=== PATIENT | male | born 1935 | race Two or more races ===

== ENCOUNTER 2022-03-19 18:45 | Inpatient (IN) | payer MEDICARE, OTHER ==
[~2022-03-19] VITALS: Ht 162.6 cm; Wt 91.7 kg
[2022-03-19] MEDS ORDERED: SODIUM CHLORIDE 0.9% 1,000 ML IV ONE (19:00)
[2022-03-19 20:10] LABS: Basophils # (auto) 0.1 10 ^3/uL (0-0.2); Basophils % (auto) 1.3 % (0.0-2.0); Eosinophils # (auto) 0.1 10 ^3/uL (0-0.8); Eosinophils % (auto) 1.9 % (0.0-7.0); Hematocrit 39.6 % (41.0-53.0); Hemoglobin 13.2 g/dL (13.5-17.5); Lymphocytes # (auto) 1.3 10 ^3/uL (0.4-5.4); Lymphocytes % (auto) 19.7 % (10.0-50.0); Mean Corpuscular Hemoglobin 29.9 pg (28.0-32.0); Mean Corpuscular Hgb Conc. 33.3 g/dL (32.0-36.0); Mean Corpuscular Volume 89.6 fL (80.0-100.0); Monocytes # (auto) 0.4 10 ^3/uL (0-1.3); Monocytes % (auto) 5.9 % (0.0-12.0); Neutrophils # (auto) 4.8 10 ^3/uL (1.6-8.6); Neutrophils % (auto) 71.2 % (37.0-80.0); Red Blood Cells 4.41 10^6/uL (4.5-5.90); Red Cell Distribution Width 15.2 % (11.8-14.3); White Blood Cell 6.8 10^3/uL (4.4-10.8)
[2022-03-19 20:25] LABS: Calcium 8.6 mg/dL (8.5-10.1); Potassium 3.8 mmol/L (3.5-5.1)
[2022-03-19 20:29] LABS: Albumin 3.1 g/dL (3.4-5.0); BUN/Creatinine Ratio 14.8
[2022-03-19 20:32] LABS: Bilirubin, Total 0.6 mg/dL (0.2-1.0); Total Protein 6.9 g/dL (6.4-8.2)
[2022-03-19 20:43] LABS: INR 1.05 (0.9-1.15); Partial Thromboplastin Time 29.1 sec (24.6-33.4)
[2022-03-19] MEDS ORDERED: ONDANSETRON HCL 4 MG/2 ML VIAL IV PRN (21:15)
[2022-03-19] MEDS ORDERED: DOCUSATE SOD 100 MG CAP PO PRN (21:15)
[2022-03-19] MEDS ORDERED: ACETAMINOPHEN 325 MG TAB PO PRN (21:15)
[2022-03-19] MEDS ORDERED: MORPHINE SULFATE INJ 2 MG/ml SYRG IV PRN (21:30)
[2022-03-19] MEDS ORDERED: NITROGLYCERIN 0.4 MG SL TAB SL PRN (21:30)
[2022-03-19] MEDS ORDERED: ASPirin 325 MG TAB PO ONE (21:45)
[2022-03-19] MEDS ORDERED: PANTOPRAZOLE 40 MG/10 ML VIAL INJ IV ONE (21:45)
[2022-03-19] MEDS ORDERED: DEXTROSE (50%) 50ML SYRG IV PRN (21:45)
[2022-03-19 22:33] LABS: Urine Bacteria NONE SEEN /hpf (None Seen); Urine Blood Negative /uL (Negative); Urine Hyaline Cast FEW /lpf (0 - 2); Urine Specific Gravity 1.019 (1.001-1.035); Urine WBC <1 /hpf (0 - 3)
[2022-03-19 22:41] LABS: Cholesterol 157 mg/dL (< 200)
[2022-03-19 22:43] LABS: HDL Cholesterol 46 mg/dL (40-59); LDL Cholesterol 97 mg/dL (< 100); Triglycerides 169 mg/dL (< 150)
[2022-03-19] MEDS: ACCU-CHEK COMFORT CURVE STRIP VI SCH (23:16)
[2022-03-19] MEDS: InsuLIN REG 1unit/0.01ml Soln (100units/ml) SC SCH (23:17)
[2022-03-19] MEDS: SODIUM CHLORIDE 0.9% 1,000 ML IV SCH (23:32)
[2022-03-20] MEDS ORDERED: hydrALAZINE HCL 20 MG/ML VL IV ONE (04:15)
[2022-03-20] MEDS: ACCU-CHEK COMFORT CURVE STRIP VI SCH ×4 (06:47→21:41)
[2022-03-20] MEDS: InsuLIN REG 1unit/0.01ml Soln (100units/ml) SC SCH ×4 (06:47→21:43)
[2022-03-20 07:00] LABS: Basophils # (auto) 0 10 ^3/uL (0-0.2); Basophils % (auto) 0.4 % (0.0-2.0); Eosinophils # (auto) 0.2 10 ^3/uL (0-0.8); Eosinophils % (auto) 2.4 % (0.0-7.0); Hematocrit 38.3 % (41.0-53.0); Hemoglobin 13.2 g/dL (13.5-17.5); Lymphocytes # (auto) 2.2 10 ^3/uL (0.4-5.4); Lymphocytes % (auto) 28.7 % (10.0-50.0); Mean Corpuscular Hemoglobin 30.8 pg (28.0-32.0); Mean Corpuscular Hgb Conc. 34.4 g/dL (32.0-36.0); Mean Corpuscular Volume 89.6 fL (80.0-100.0); Monocytes # (auto) 0.6 10 ^3/uL (0-1.3); Monocytes % (auto) 7.4 % (0.0-12.0); Neutrophils # (auto) 4.7 10 ^3/uL (1.6-8.6); Neutrophils % (auto) 61.1 % (37.0-80.0); Red Blood Cells 4.27 10^6/uL (4.5-5.90); Red Cell Distribution Width 14.8 % (11.8-14.3); White Blood Cell 7.7 10^3/uL (4.4-10.8)
[2022-03-20 07:01] LABS: Potassium 3.1 mmol/L (3.5-5.1)
[2022-03-20 07:07] LABS: Albumin 3.1 g/dL (3.4-5.0); BUN/Creatinine Ratio 19.8; Bilirubin, Total 1.1 mg/dL (0.2-1.0); Calcium 8.5 mg/dL (8.5-10.1); Total Protein 6.8 g/dL (6.4-8.2)
[2022-03-20] MEDS ORDERED: POTASSIUM EFFERVESENT TAB 25 MEQ PO ONE (07:30)
[2022-03-20] MEDS: ASPirin 81 mg TAB PO SCH (07:56)
[2022-03-20] MEDS: SODIUM CHLORIDE 0.9% 1,000 ML IV SCH ×2 (07:56→17:15)
[2022-03-20] MEDS: ENOXAPARIN SOD 40 MG/0.4 ML SYRINGE SC SCH (07:56)
[2022-03-20] MEDS ORDERED: PANTOPRAZOLE 40 MG/10 ML VIAL INJ IV SCH (10:00)
[2022-03-20 12:45] VITALS: BP 139/68
[2022-03-20] MEDS ORDERED: METF-372 PO (13:48)
[2022-03-20] MEDS ORDERED: MEMA1TAB5 PO (13:48)
[2022-03-20] MEDS ORDERED: CYAN1TAB11 PO (13:48)
[2022-03-20] MEDS ORDERED: TAMS0.4C36 PO (15:45)
[2022-03-20] MEDS ORDERED: MEMA1TAB3 PO (15:45)
[2022-03-20] MEDS ORDERED: INSUINJ37 SC (15:45)
[2022-03-20] MEDS ORDERED: LOSA-69 PO (15:45)
[2022-03-20 20:00] VITALS: BP 133/76
[2022-03-20] MEDS ORDERED: LORazepam 2MG/ML-1ML VIAL IV PRN (20:30)
[2022-03-20 22:00] VITALS: BP 133/76
[2022-03-20 22:21] LABS: Folate (Folic Acid) 15.04 ng/mL (5.38-24)
[2022-03-21] VITALS (8 sets, daily range): BP systolic 133–172; BP diastolic 62–80
[2022-03-21] MEDS: SODIUM CHLORIDE 0.9% 1,000 ML IV SCH ×3 (03:15→23:15)
[2022-03-21] MEDS: InsuLIN REG 1unit/0.01ml Soln (100units/ml) SC SCH ×4 (06:22→22:42)
[2022-03-21] MEDS: ACCU-CHEK COMFORT CURVE STRIP VI SCH ×4 (06:22→22:42)
[2022-03-21] MEDS: ASPirin 81 mg TAB PO SCH (09:53)
[2022-03-21] MEDS: ENOXAPARIN SOD 40 MG/0.4 ML SYRINGE SC SCH (09:54)
[2022-03-21 11:58] LABS: Calcium 8.1 mg/dL (8.5-10.1); Potassium 3.7 mmol/L (3.5-5.1)
[2022-03-21] MEDS ORDERED: LOSARTAN POTASSIUM 50 MG TAB PO ONE (14:45)
[2022-03-21] MEDS ORDERED: hydrALAZINE HCL 20 MG/ML VL IV ONE (23:00)
[2022-03-22 00:50] VITALS: BP 126/76
[2022-03-22 05:00] VITALS: BP 148/62
[2022-03-22] MEDS: ACCU-CHEK COMFORT CURVE STRIP VI SCH ×2 (06:22→11:50)
[2022-03-22] MEDS: InsuLIN REG 1unit/0.01ml Soln (100units/ml) SC SCH ×2 (06:23→11:54)
[2022-03-22 08:00] VITALS: BP 150/62
[2022-03-22 09:04] VITALS: BP 130/79
[2022-03-22] MEDS: ASPirin 81 mg TAB PO SCH (09:35)
[2022-03-22] MEDS: ENOXAPARIN SOD 40 MG/0.4 ML SYRINGE SC SCH (09:36)
[2022-03-22] MEDS ORDERED: LOSARTAN POTASSIUM 50 MG TAB PO SCH (10:00)
[2022-03-22 13:00] VITALS: BP 115/64
[2022-03-22 14:24] VITALS: BP 115/64
== END 2022-03-22 16:25 | disposition home or self-care (01) | DRG 71 ==
LOC: EDBD 18:45 → ER 18:50 → TELE 21:44 → TELE-CENTR 03-20 09:40
PROVIDERS: ADMIT Nurse Practitioner Family; ATTEND Nurse Practitioner Acute Care
DX: G93.41 Metabolic encephalopathy (principal); E46 Unspecified protein-calorie malnutrition; F03.B18 Unspecified dementia, moderate, with other behavioral disturbance; G45.9 Transient cerebral ischemic attack, unspecified; E86.0 Dehydration; E87.6 Hypokalemia; G47.10 Hypersomnia, unspecified; I10 Essential (primary) hypertension; E11.9 Type 2 diabetes mellitus without complications; D64.9 Anemia, unspecified; Z20.822 Contact with and (suspected) exposure to COVID-19; E66.01 Morbid (severe) obesity due to excess calories; Z82.3 Family history of stroke; Z68.34 Body mass index [BMI] 34.0-34.9, adult
CPT/HCPCS: 36415; 70450; 70551; 71045; 80048; 80053; 80061; 81001; 82607; 82746; 82962; 83036; 83880; 84443; 84484; 85025; 85610; 85730; 87426; 93005; 93306; 93886; 95819; 96361; 96372; 96374; 96375; 96376; C9113; G0378; J1815

== ENCOUNTER 2023-06-11 05:20 | Inpatient (IN) | payer MEDICARE ==
[~2023-06-11] VITALS: Ht 172.7 cm; Wt 90.4 kg
[~2023-06-11 05:20] MED LIST: CYAN1TAB11 PO; INSUINJ37 SC; LOSA50TA46 PO; MEMA1TAB3 PO; MEMA1TAB5 PO; METF-372 PO; TAMS0.4C36 PO
[2023-06-11] MEDS ORDERED: ONDANSETRON HCL 4 MG/2 ML VIAL IM ONE (06:30)
[2023-06-11] MEDS ORDERED: HYDROmorphone HCL 2 MG/ML VL/or syr IM ONE (06:30)
[2023-06-11 08:35] LABS: Basophils # (auto) 0 10 ^3/uL (0-0.2); Basophils % (auto) 0.6 % (0.0-2.0); Eosinophils # (auto) 0.2 10 ^3/uL (0-0.8); Lymphocytes # (auto) 1.8 10 ^3/uL (0.4-5.4); Lymphocytes % (auto) 21.8 % (10.0-50.0); Mean Corpuscular Hemoglobin 30.1 pg (28.0-32.0); Mean Corpuscular Hgb Conc. 33.3 g/dL (32.0-36.0); Mean Corpuscular Volume 90.4 fL (80.0-100.0); Monocytes # (auto) 0.6 10 ^3/uL (0-1.3); Monocytes % (auto) 6.9 % (0.0-12.0); Neutrophils # (auto) 5.8 10 ^3/uL (1.6-8.6); Neutrophils % (auto) 68.7 % (37.0-80.0); Nucleated Red Blood Cells % 0.1 %; Red Blood Cells 4.31 10^6/uL (4.5-5.90); Red Cell Distribution Width 14.3 % (11.8-14.3); White Blood Cell 8.4 10^3/uL (4.4-10.8)
[2023-06-11 08:45] LABS: Chloride 111 mmol/L (98-107); Potassium 3.8 mmol/L (3.5-5.1); Sodium 143 mmol/L (136-145)
[2023-06-11 08:46] LABS: Anion Gap 6 (5-15); Carbon Dioxide 26 mmol/L (20-30)
[2023-06-11 08:47] LABS: Calcium 9.2 mg/dL (8.5-10.1)
[2023-06-11 08:51] LABS: BUN/Creatinine Ratio 18.1 (10.0-20.0); Blood Urea Nitrogen 25 mg/dL (9-23); Glucose 102 mg/dL (74-106)
[2023-06-11] MEDS ORDERED: DOCUSATE SOD 100 MG CAP PO PRN (09:45)
[2023-06-11] MEDS ORDERED: DEXTROSE (50%) 50ML SYRG IV PRN (09:45)
[2023-06-11] MEDS ORDERED: ONDANSETRON HCL 4 MG/2 ML VIAL IV PRN (09:45)
[2023-06-11] MEDS ORDERED: HALOPERIDOL LACTATE 5 MG/ML INJ VIAL IM PRN (09:45)
[2023-06-11] MEDS: levETIRAcetam 500 MG TAB PO SCH ×2 (10:00→23:55)
[2023-06-11] MEDS: LOSARTAN POTASSIUM 50 MG TAB PO SCH (10:00)
[2023-06-11] MEDS: TAMSULOSIN HYDROCHLORIDE 0.4 MG CAP PO SCH (10:00)
[2023-06-11] MEDS: MEMANTINE HCL 5 MG TAB PO SCH ×2 (10:00→23:54)
[2023-06-11] MEDS: SODIUM CHLORIDE 0.9% 1,000 ML IV SCH ×2 (10:36→19:45)
[2023-06-11] MEDS: ACCU-CHEK COMFORT CURVE STRIP VI SCH ×2 (12:00→16:59)
[2023-06-11] MEDS: InsuLIN REG 1unit/0.01ml Soln (100units/ml) SC SCH ×2 (12:00→17:00)
[2023-06-11 20:10] VITALS: RESP 20; O2SAT 97
[2023-06-11 20:47] LABS: Urine Epithelial Cast None Seen /hpf (<5)
[2023-06-11 20:59] LABS: Urine Bacteria NONE SEEN /hpf (None Seen); Urine Blood Negative /uL (Negative); Urine Clarity Clear (Clear); Urine Color Yellow (Yellow); Urine Hyaline Cast FEW /lpf (0 - 2); Urine Protein, UAD Negative (Negative); Urine Specific Gravity 1.019 (1.001-1.035); Urine Urobilinogen Normal (Negative); Urine WBC 2 /hpf (0 - 3)
[2023-06-11 21:13] LABS: Creatinine, Urine 110.73 mg/dL (30.0-125.0)
[2023-06-12] MEDS: ACCU-CHEK COMFORT CURVE STRIP VI SCH ×4 (01:00→18:00)
[2023-06-12] MEDS: InsuLIN REG 1unit/0.01ml Soln (100units/ml) SC SCH ×4 (01:00→18:00)
[2023-06-12] MEDS: SODIUM CHLORIDE 0.9% 1,000 ML IV SCH ×2 (06:15→15:45)
[2023-06-12 06:48] LABS: Basophils # (auto) 0 10 ^3/uL (0-0.2); Basophils % (auto) 0.2 % (0.0-2.0); Eosinophils # (auto) 0 10 ^3/uL (0-0.8); Eosinophils % (auto) 0.1 % (0.0-7.0); Hematocrit 39.9 % (41.0-53.0); Lymphocytes # (auto) 1.3 10 ^3/uL (0.4-5.4); Lymphocytes % (auto) 10.5 % (10.0-50.0); Mean Corpuscular Hemoglobin 29.9 pg (28.0-32.0); Mean Corpuscular Hgb Conc. 32.7 g/dL (32.0-36.0); Mean Corpuscular Volume 91.5 fL (80.0-100.0); Monocytes # (auto) 0.8 10 ^3/uL (0-1.3); Monocytes % (auto) 6.3 % (0.0-12.0); Neutrophils # (auto) 10.3 10 ^3/uL (1.6-8.6); Neutrophils % (auto) 82.9 % (37.0-80.0); Red Blood Cells 4.36 10^6/uL (4.5-5.90); White Blood Cell 12.5 10^3/uL (4.4-10.8)
[2023-06-12 06:59] LABS: Alanine Aminotransferase 25 U/L (7-40); Albumin 3.9 g/dL (3.2-4.8); Alkaline Phosphatase 82 U/L (46-116); Anion Gap 8 (5-15); Aspartate Aminotransferase 50 U/L (13-40); Bilirubin, Total 1.5 mg/dL (0.2-1.0); Blood Urea Nitrogen 16 mg/dL (9-23); Calcium 8.7 mg/dL (8.7-10.4); Carbon Dioxide 23 mmol/L (20-30); Chloride 110 mmol/L (98-107); Glucose 103 mg/dL (74-106); Potassium 3.8 mmol/L (3.5-5.1); Sodium 141 mmol/L (136-145); Total Protein 7.2 g/dL (5.7-8.2)
[2023-06-12] MEDS ORDERED: MEMA10TA PO (09:44)
[2023-06-12 09:46] VITALS: PULSE 80; RESP 20; O2SAT 96
[2023-06-12] MEDS: levETIRAcetam 500 MG TAB PO SCH ×2 (10:00→22:43)
[2023-06-12] MEDS: TAMSULOSIN HYDROCHLORIDE 0.4 MG CAP PO SCH (10:00)
[2023-06-12] MEDS: LOSARTAN POTASSIUM 50 MG TAB PO SCH (10:00)
[2023-06-12] MEDS: MEMANTINE HCL 5 MG TAB PO SCH ×2 (10:00→22:42)
[2023-06-12 19:30] VITALS: PULSE 74; RESP 18; O2SAT 91
[2023-06-12] MEDS ORDERED: HALOPERIDOL LACTATE 5 MG/ML INJ VIAL IM ONE (20:30)
[2023-06-13] MEDS: SODIUM CHLORIDE 0.9% 1,000 ML IV SCH ×2 (01:41→11:47)
[2023-06-13 05:28] LABS: Basophils # (auto) 0 10 ^3/uL (0-0.2); Basophils % (auto) 0.4 % (0.0-2.0); Eosinophils # (auto) 0.1 10 ^3/uL (0-0.8); Eosinophils % (auto) 1.1 % (0.0-7.0); Hematocrit 38.4 % (41.0-53.0); Hemoglobin 12.7 g/dL (13.5-17.5); Lymphocytes # (auto) 1.4 10 ^3/uL (0.4-5.4); Lymphocytes % (auto) 15.8 % (10.0-50.0); Mean Corpuscular Hgb Conc. 33.2 g/dL (32.0-36.0); Mean Corpuscular Volume 90.4 fL (80.0-100.0); Monocytes # (auto) 0.7 10 ^3/uL (0-1.3); Neutrophils # (auto) 6.5 10 ^3/uL (1.6-8.6); Neutrophils % (auto) 74.7 % (37.0-80.0); Red Blood Cells 4.24 10^6/uL (4.5-5.90); Red Cell Distribution Width 14.2 % (11.8-14.3); White Blood Cell 8.7 10^3/uL (4.4-10.8)
[2023-06-13 05:46] LABS: Alanine Aminotransferase 26 U/L (7-40); Albumin 3.9 g/dL (3.2-4.8); Alkaline Phosphatase 89 U/L (46-116); Anion Gap 8 (5-15); Aspartate Aminotransferase 74 U/L (13-40); BUN/Creatinine Ratio 20.7 (10.0-20.0); Bilirubin, Total 1.8 mg/dL (0.2-1.0); Blood Urea Nitrogen 19 mg/dL (9-23); Calcium 9.3 mg/dL (8.5-10.1); Carbon Dioxide 25 mmol/L (20-30); Chloride 107 mmol/L (98-107); Glucose 139 mg/dL (74-106); Potassium 3.7 mmol/L (3.5-5.1); Sodium 140 mmol/L (136-145); Total Protein 7.3 g/dL (5.7-8.2)
[2023-06-13] MEDS: InsuLIN REG 1unit/0.01ml Soln (100units/ml) SC SCH ×4 (06:00→18:52)
[2023-06-13] MEDS: ACCU-CHEK COMFORT CURVE STRIP VI SCH ×4 (06:21→18:00)
[2023-06-13 07:50] VITALS: PULSE 84; RESP 14; O2SAT 95
[2023-06-13] MEDS: MEMANTINE HCL 5 MG TAB PO SCH ×2 (10:20→22:33)
[2023-06-13] MEDS: levETIRAcetam 500 MG TAB PO SCH ×2 (10:21→22:33)
[2023-06-13] MEDS: LOSARTAN POTASSIUM 50 MG TAB PO SCH (10:21)
[2023-06-13] MEDS: TAMSULOSIN HYDROCHLORIDE 0.4 MG CAP PO SCH (10:22)
[2023-06-14] MEDS: ACCU-CHEK COMFORT CURVE STRIP VI SCH ×5 (00:35→23:56)
[2023-06-14] MEDS: InsuLIN REG 1unit/0.01ml Soln (100units/ml) SC SCH ×4 (00:39→17:39)
[2023-06-14 05:53] LABS: Basophils # (auto) 0 10 ^3/uL (0-0.2); Basophils % (auto) 0.4 % (0.0-2.0); Eosinophils # (auto) 0.2 10 ^3/uL (0-0.8); Eosinophils % (auto) 2.3 % (0.0-7.0); Hematocrit 36.8 % (41.0-53.0); Hemoglobin 12.3 g/dL (13.5-17.5); Lymphocytes # (auto) 1.5 10 ^3/uL (0.4-5.4); Lymphocytes % (auto) 16.6 % (10.0-50.0); Mean Corpuscular Hemoglobin 30.1 pg (28.0-32.0); Mean Corpuscular Hgb Conc. 33.5 g/dL (32.0-36.0); Mean Corpuscular Volume 89.9 fL (80.0-100.0); Monocytes # (auto) 0.8 10 ^3/uL (0-1.3); Monocytes % (auto) 8.4 % (0.0-12.0); Neutrophils # (auto) 6.5 10 ^3/uL (1.6-8.6); Neutrophils % (auto) 72.3 % (37.0-80.0); Red Blood Cells 4.09 10^6/uL (4.5-5.90)
[2023-06-14 06:15] LABS: Alanine Aminotransferase 31 U/L (7-40); Alkaline Phosphatase 111 U/L (46-116); Anion Gap 8 (5-15); Blood Urea Nitrogen 21 mg/dL (9-23); Carbon Dioxide 25 mmol/L (20-30); Chloride 108 mmol/L (98-107); Glucose 164 mg/dL (74-106); Potassium 3.5 mmol/L (3.5-5.1); Sodium 141 mmol/L (136-145)
[2023-06-14 06:16] LABS: Albumin 3.9 g/dL (3.2-4.8); Aspartate Aminotransferase 93 U/L (13-40)
[2023-06-14 06:17] LABS: Bilirubin, Total 1.2 mg/dL (0.2-1.0); Total Protein 7.1 g/dL (5.7-8.2)
[2023-06-14 08:30] VITALS: BP 167/80; PULSE 68; RESP 17; TEMP 97.7; O2SAT 97
[2023-06-14 09:00] VITALS: BP 167/80; PULSE 68; RESP 17; TEMP 97.7; O2SAT 97
[2023-06-14] MEDS: levETIRAcetam 500 MG TAB PO SCH ×2 (09:24→21:49)
[2023-06-14] MEDS: TAMSULOSIN HYDROCHLORIDE 0.4 MG CAP PO SCH (09:24)
[2023-06-14] MEDS: MEMANTINE HCL 5 MG TAB PO SCH ×2 (09:24→21:49)
[2023-06-14] MEDS: LOSARTAN POTASSIUM 50 MG TAB PO SCH (09:25)
[2023-06-14 13:00] VITALS: BP 108/56; PULSE 83; RESP 17; TEMP 97.9; O2SAT 96
[2023-06-14] MEDS: ACETAMINOPHEN 325 MG TAB PO PRN (15:36)
[2023-06-14 16:55] VITALS: BP 151/62; PULSE 79; RESP 17; TEMP 98.6; O2SAT 97
[2023-06-14 20:00] VITALS: PULSE 70; RESP 16; O2SAT 94
[2023-06-14 21:51] VITALS: BP 111/49; PULSE 68; RESP 17; TEMP 98.3; O2SAT 93
[2023-06-15] MEDS: InsuLIN REG 1unit/0.01ml Soln (100units/ml) SC SCH ×4 (00:02→18:20)
[2023-06-15 05:00] VITALS: BP 108/51; PULSE 70; RESP 19; TEMP 98.2; O2SAT 92
[2023-06-15] MEDS: ACCU-CHEK COMFORT CURVE STRIP VI SCH ×3 (05:49→18:20)
[2023-06-15] MEDS: LOSARTAN POTASSIUM 50 MG TAB PO SCH (09:45)
[2023-06-15] MEDS: levETIRAcetam 500 MG TAB PO SCH ×2 (09:46→21:25)
[2023-06-15] MEDS: MEMANTINE HCL 5 MG TAB PO SCH ×2 (09:46→21:25)
[2023-06-15] MEDS: TAMSULOSIN HYDROCHLORIDE 0.4 MG CAP PO SCH (09:48)
[2023-06-15] MEDS: ACETAMINOPHEN 325 MG TAB PO PRN ×2 (12:41→21:30)
[2023-06-15 17:00] VITALS: BP 89/37; PULSE 65; RESP 17; TEMP 98.8; O2SAT 93
[2023-06-15] MEDS ORDERED: SODIUM CHLORIDE 0.9% 500 ML IV ONE (17:30)
[2023-06-15 20:00] VITALS: RESP 18
[2023-06-16] MEDS: ACCU-CHEK COMFORT CURVE STRIP VI SCH ×5 (00:15→23:26)
[2023-06-16] MEDS: InsuLIN REG 1unit/0.01ml Soln (100units/ml) SC SCH ×5 (00:16→23:29)
[2023-06-16 05:00] VITALS: BP 136/55; PULSE 63; RESP 17; TEMP 98.2; O2SAT 95
[2023-06-16 08:00] VITALS: RESP 18
[2023-06-16 09:00] VITALS: BP 157/68; PULSE 66; RESP 18; TEMP 97.8; O2SAT 97
[2023-06-16 09:25] LABS: Basophils # (auto) 0.1 10 ^3/uL (0-0.2); Eosinophils # (auto) 0.4 10 ^3/uL (0-0.8); Eosinophils % (auto) 4.9 % (0.0-7.0); Hematocrit 35.8 % (41.0-53.0); Lymphocytes # (auto) 1.8 10 ^3/uL (0.4-5.4); Lymphocytes % (auto) 23.3 % (10.0-50.0); Mean Corpuscular Hemoglobin 29.9 pg (28.0-32.0); Mean Corpuscular Hgb Conc. 33.4 g/dL (32.0-36.0); Mean Corpuscular Volume 89.6 fL (80.0-100.0); Monocytes # (auto) 0.5 10 ^3/uL (0-1.3); Neutrophils # (auto) 4.9 10 ^3/uL (1.6-8.6); Neutrophils % (auto) 63.8 % (37.0-80.0); Nucleated Red Blood Cells % 0.1 %; Red Cell Distribution Width 14.1 % (11.8-14.3); White Blood Cell 7.6 10^3/uL (4.4-10.8)
[2023-06-16 09:45] LABS: Alanine Aminotransferase 32 U/L (7-40); Albumin 3.6 g/dL (3.2-4.8); Alkaline Phosphatase 112 U/L (46-116); Anion Gap 6 (5-15); Aspartate Aminotransferase 59 U/L (13-40); BUN/Creatinine Ratio 21.1 (10.0-20.0); Blood Urea Nitrogen 23 mg/dL (9-23); Calcium 8.9 mg/dL (8.5-10.1); Carbon Dioxide 26 mmol/L (20-30); Chloride 111 mmol/L (98-107); Glucose 121 mg/dL (74-106); Potassium 3.4 mmol/L (3.5-5.1); Sodium 143 mmol/L (136-145)
[2023-06-16] MEDS: MEMANTINE HCL 5 MG TAB PO SCH ×2 (09:45→21:31)
[2023-06-16] MEDS: levETIRAcetam 500 MG TAB PO SCH ×2 (09:45→21:31)
[2023-06-16 09:46] LABS: Bilirubin, Total 1.4 mg/dL (0.2-1.0); Total Protein 6.6 g/dL (5.7-8.2)
[2023-06-16] MEDS: TAMSULOSIN HYDROCHLORIDE 0.4 MG CAP PO SCH (09:47)
[2023-06-16] MEDS: LOSARTAN POTASSIUM 50 MG TAB PO SCH (09:47)
[2023-06-16 10:00] LABS: Magnesium 1.8 mg/dL (1.6-2.6)
[2023-06-16] MEDS ORDERED: POTASSIUM EFFERVESENT TAB 25 MEQ PO ONE (12:00)
[2023-06-16] MEDS: ACETAMINOPHEN 325 MG TAB PO PRN ×2 (12:01→21:32)
[2023-06-16 13:00] VITALS: PULSE 77; RESP 18; TEMP 97.9; O2SAT 97
[2023-06-16 17:00] VITALS: BP 120/42; PULSE 65; RESP 18; TEMP 97.8; O2SAT 94
[2023-06-16 22:00] VITALS: BP 111/64; PULSE 59; RESP 17; TEMP 98.3; O2SAT 94
[2023-06-17 05:00] VITALS: BP 129/66; PULSE 61; RESP 16; TEMP 98; O2SAT 95
[2023-06-17] MEDS: InsuLIN REG 1unit/0.01ml Soln (100units/ml) SC SCH ×3 (06:00→17:32)
[2023-06-17] MEDS: ACCU-CHEK COMFORT CURVE STRIP VI SCH ×3 (06:17→17:31)
[2023-06-17 06:28] LABS: Basophils # (auto) 0.1 10 ^3/uL (0-0.2); Basophils % (auto) 1.2 % (0.0-2.0); Eosinophils # (auto) 0.4 10 ^3/uL (0-0.8); Eosinophils % (auto) 5.1 % (0.0-7.0); Hematocrit 33.3 % (41.0-53.0); Hemoglobin 11.3 g/dL (13.5-17.5); Lymphocytes # (auto) 1.8 10 ^3/uL (0.4-5.4); Lymphocytes % (auto) 24.5 % (10.0-50.0); Mean Corpuscular Hemoglobin 30.3 pg (28.0-32.0); Mean Corpuscular Hgb Conc. 33.8 g/dL (32.0-36.0); Mean Corpuscular Volume 89.9 fL (80.0-100.0); Monocytes # (auto) 0.6 10 ^3/uL (0-1.3); Neutrophils # (auto) 4.4 10 ^3/uL (1.6-8.6); Neutrophils % (auto) 61.2 % (37.0-80.0); Nucleated Red Blood Cells % 0.1 %; Red Blood Cells 3.71 10^6/uL (4.5-5.90); Red Cell Distribution Width 14.1 % (11.8-14.3); White Blood Cell 7.3 10^3/uL (4.4-10.8)
[2023-06-17 06:45] LABS: Alanine Aminotransferase 31 U/L (7-40); Albumin 3.3 g/dL (3.2-4.8); Alkaline Phosphatase 113 U/L (46-116); Anion Gap 5 (5-15); Aspartate Aminotransferase 41 U/L (13-40); BUN/Creatinine Ratio 22.8 (10.0-20.0); Blood Urea Nitrogen 21 mg/dL (9-23); Calcium 8.5 mg/dL (8.7-10.4); Carbon Dioxide 27 mmol/L (20-30); Chloride 110 mmol/L (98-107); Glucose 133 mg/dL (74-106); Magnesium 1.8 mg/dL (1.6-2.6); Potassium 3.6 mmol/L (3.5-5.1); Sodium 142 mmol/L (136-145)
[2023-06-17 06:46] LABS: Total Protein 6.2 g/dL (5.7-8.2)
[2023-06-17 07:30] VITALS: PULSE 62; RESP 16
[2023-06-17 09:00] VITALS: BP 121/64; PULSE 62; RESP 16; TEMP 98.2; O2SAT 95
[2023-06-17] MEDS: levETIRAcetam 500 MG TAB PO SCH ×2 (10:44→22:00)
[2023-06-17] MEDS: TAMSULOSIN HYDROCHLORIDE 0.4 MG CAP PO SCH (10:44)
[2023-06-17] MEDS: MEMANTINE HCL 5 MG TAB PO SCH ×2 (10:44→22:00)
[2023-06-17] MEDS: LOSARTAN POTASSIUM 50 MG TAB PO SCH (10:45)
[2023-06-17 13:00] VITALS: BP 93/42; PULSE 85; RESP 16; TEMP 97.8; O2SAT 93
[2023-06-17 17:00] VITALS: BP 120/47; PULSE 68; RESP 17; TEMP 97.6; O2SAT 94
[2023-06-17 22:00] VITALS: BP 108/59; PULSE 67; RESP 16; TEMP 98.8; O2SAT 95
[2023-06-18] MEDS: ACCU-CHEK COMFORT CURVE STRIP VI SCH ×5 (00:13→23:01)
[2023-06-18] MEDS: InsuLIN REG 1unit/0.01ml Soln (100units/ml) SC SCH ×5 (00:13→23:04)
[2023-06-18 05:00] VITALS: BP 126/56; PULSE 63; RESP 16; TEMP 98; O2SAT 92
[2023-06-18 07:30] VITALS: PULSE 62; RESP 18
[2023-06-18 08:30] VITALS: BP 135/54; PULSE 65; RESP 18; TEMP 97.6; O2SAT 95
[2023-06-18] MEDS: levETIRAcetam 500 MG TAB PO SCH ×2 (09:45→22:57)
[2023-06-18] MEDS: LOSARTAN POTASSIUM 50 MG TAB PO SCH (09:45)
[2023-06-18] MEDS: TAMSULOSIN HYDROCHLORIDE 0.4 MG CAP PO SCH (09:45)
[2023-06-18] MEDS: MEMANTINE HCL 5 MG TAB PO SCH ×2 (09:45→22:57)
[2023-06-18] MEDS: ACETAMINOPHEN 325 MG TAB PO PRN ×2 (09:49→15:58)
[2023-06-18 14:28] VITALS: BP 87/59; PULSE 74; RESP 17; TEMP 97.9; O2SAT 96
[2023-06-18] MEDS ORDERED: ACETAMINOPHEN 325 MG TAB PO PRN (17:00)
[2023-06-18] MEDS ORDERED: HYDROcodone-ACET 5/325MG TAB PO PRN (17:00)
[2023-06-18 17:08] VITALS: BP 126/59; PULSE 71; RESP 19; TEMP 97.9; O2SAT 97
[2023-06-18] MEDS: traMADol HCL 50 MG TAB PO PRN (18:30)
[2023-06-18 22:00] VITALS: BP 110/43; PULSE 73; RESP 15; TEMP 97.9; O2SAT 96
[2023-06-19 05:00] VITALS: BP 98/80; PULSE 69; RESP 19; TEMP 98; O2SAT 94
[2023-06-19] MEDS: ACCU-CHEK COMFORT CURVE STRIP VI SCH ×3 (06:16→16:38)
[2023-06-19] MEDS: InsuLIN REG 1unit/0.01ml Soln (100units/ml) SC SCH ×3 (06:17→16:41)
[2023-06-19 08:10] VITALS: BP 101/54; PULSE 74; RESP 16; RESP 17; TEMP 98.9; O2SAT 95
[2023-06-19 08:40] VITALS: BP_SYST 101; BP_SYST 96; BP_DIAS 52; BP_DIAS 54; PULSE 74; PULSE 82; RESP 16; RESP 17; TEMP 97.8; TEMP 98.9; O2SAT 95; O2SAT 96
[2023-06-19] MEDS: MEMANTINE HCL 5 MG TAB PO SCH ×2 (09:48→22:32)
[2023-06-19] MEDS: TAMSULOSIN HYDROCHLORIDE 0.4 MG CAP PO SCH (09:50)
[2023-06-19] MEDS: levETIRAcetam 500 MG TAB PO SCH ×2 (09:50→22:32)
[2023-06-19] MEDS: LOSARTAN POTASSIUM 50 MG TAB PO SCH (09:56)
[2023-06-19 12:40] VITALS: BP 98/41; PULSE 71; RESP 17; TEMP 98.4; O2SAT 98
[2023-06-19] MEDS: traMADol HCL 50 MG TAB PO PRN ×2 (16:32→22:32)
[2023-06-19 16:40] VITALS: BP 104/47; PULSE 69; RESP 17; TEMP 98.2; O2SAT 93
[2023-06-19 22:00] VITALS: BP 103/55; PULSE 64; RESP 18; TEMP 98.4; O2SAT 92
[2023-06-20] VITALS (7 sets, daily range): BP systolic 107–128; BP diastolic 53–62; PULSE 64–79; RESP 16–21; TEMP 97.3–99; O2SAT 92–98
[2023-06-20] MEDS: ACCU-CHEK COMFORT CURVE STRIP VI SCH ×4 (00:14→17:39)
[2023-06-20] MEDS: InsuLIN REG 1unit/0.01ml Soln (100units/ml) SC SCH ×4 (00:16→17:48)
[2023-06-20] MEDS: TAMSULOSIN HYDROCHLORIDE 0.4 MG CAP PO SCH (10:10)
[2023-06-20] MEDS: levETIRAcetam 500 MG TAB PO SCH ×2 (10:10→21:07)
[2023-06-20] MEDS: LOSARTAN POTASSIUM 50 MG TAB PO SCH (10:10)
[2023-06-20] MEDS: MEMANTINE HCL 5 MG TAB PO SCH ×2 (10:11→21:08)
[2023-06-20] MEDS: traMADol HCL 50 MG TAB PO PRN (14:19)
[2023-06-21] MEDS: ACCU-CHEK COMFORT CURVE STRIP VI SCH ×2 (00:05→05:41)
[2023-06-21] MEDS: InsuLIN REG 1unit/0.01ml Soln (100units/ml) SC SCH ×2 (00:06→05:41)
[2023-06-21 05:00] VITALS: BP 111/49; PULSE 78; RESP 19; TEMP 98; O2SAT 98
[2023-06-21 06:25] VITALS: BP 128/61
== END 2023-06-21 07:30 | DRG 552 ==
LOC: ER 05:20 → EDBD 05:20 → OVERFLOW 09:35 → EAST 06-14 08:04
PROVIDERS: ADMIT Internal Medicine Pulmonary Disease; ATTEND Emergency Medicine
DX: M51.36 Other intervertebral disc degeneration, lumbar region (principal); F03.92 Unspecified dementia, unspecified severity, with psychotic disturbance; I71.43 Infrarenal abdominal aortic aneurysm, without rupture; G47.00 Insomnia, unspecified; E11.649 Type 2 diabetes mellitus with hypoglycemia without coma; I10 Essential (primary) hypertension; N40.0 Benign prostatic hyperplasia without lower urinary tract symptoms; R56.9 Unspecified convulsions; F29 Unspecified psychosis not due to a substance or known physiological condition; M43.16 Spondylolisthesis, lumbar region; E87.6 Hypokalemia; F94.0 Selective mutism; Z74.01 Bed confinement status; Y92.009 Unspecified place in unspecified non-institutional (private) residence as the place of occurrence of the external cause; Z79.4 Long term (current) use of insulin; Z79.899 Other long term (current) drug therapy; Z86.73 Personal history of transient ischemic attack (TIA), and cerebral infarction without residual deficits
CPT/HCPCS: 36415; 70450; 72131; 72170; 73600; 80048; 80053; 81001; 82570; 82962; 83036; 83735; 84300; 85025; 93005; 93971; 97110; 97116; 97163; 97530; 99291; G0378; J1815